=== PATIENT | female | born 1975 | race Caucasian/White ===

== ENCOUNTER → 2016-08-28 | Outpatient (CLI) | payer OTHER ==
[~2016-08-28] MED LIST: BACTRIM DS 8001 TAB PO; CEPHALEXIN500 M1 PO; DESYREL 50MG50 MG PO; DIFLUCAN150 MG PO; FIORICET 325 MG1 TA1 PO; GLUCOPHAGE1000 MG PO; MACROBID 1100 MG/CAP PO; NASONEX SPRAY17 GM NS; NO HOME MEDICATIONS; NORCO 325 MG-51 TAB PO; NORCO 325 MG-7.1 TAB PO; PROMETHAZINE12.5 M5 PO; PYRIDIUM200 M1 PO; SINGULAIR 110 MG/TAB PO; TOPAMAX50 MG PO; TUSS PO; VENTOLIN0.09 MG IH; ZITHROMAX Z PA250 MG PO
== END ==
LOC: COL.RAD 09:45
DX: E04.2 Nontoxic multinodular goiter (principal)

== ENCOUNTER → 2016-09-08 | Outpatient (CLI) | payer OTHER ==
[~2016-09-08] VITALS: Ht 157.5 cm; Wt 85.8 kg
[2016-09-08 12:13] VITALS: BP 109/74; PULSE 68
[2016-09-08 13:15] VITALS: BP 119/77; PULSE 66
== END ==
LOC: COL.RAD 11:45
DX: E04.2 Nontoxic multinodular goiter (principal)
CPT/HCPCS: 13756

== ENCOUNTER → 2016-10-06 | Outpatient (CLI) | payer OTHER | LOC: MC.RAD 10:14 | DX: Z12.31 Encounter for screening mammogram for malignant neoplasm of breast (principal) ==

== ENCOUNTER 2016-10-27 06:12 | Day surgery (SDC) | payer OTHER ==
[2016-10-27] VITALS (12 sets, daily range): BP systolic 89–140; BP diastolic 52–71; PULSE 56–81; TEMP 97.8–98.7
[~2016-10-27] VITALS: Ht 157.5 cm; Wt 84.8 kg
[~2016-10-27 06:12] MED LIST changes: -NORCO 325 MG-7.1 TAB PO
[2016-10-28 01:23] VITALS: BP 106/57; PULSE 70; TEMP 97.4
[2016-10-28 05:21] VITALS: BP 91/55; PULSE 65; TEMP 98.1
[2016-10-28 09:59] VITALS: BP 121/68; PULSE 65; TEMP 98.2
[2016-10-28 13:46] VITALS: BP 105/69; PULSE 66; TEMP 98.2
[2016-10-28] MEDS ORDERED: NORCO 325 MG-7.1 TAB PO (14:15)
== END 2016-10-28 15:00 | disposition home or self-care (01) ==
LOC: SDCO 06:12 → SURG 11:45 → SDCO 10-28 15:00
DX: D34 Benign neoplasm of thyroid gland (principal); E28.2 Polycystic ovarian syndrome; G43.909 Migraine, unspecified, not intractable, without status migrainosus; R51 Headache; F17.210 Nicotine dependence, cigarettes, uncomplicated
CPT/HCPCS: OP; J0690; J1100; J1170; J1885; J2270; J2405; J2704; J2710; J2765; J3010; J7120